=== PATIENT | male | born 1945 | race Caucasian/White ===

== ENCOUNTER → 2018-01-04 | Outpatient (CLI) | payer OTHER, MEDICARE ==
[~2018-01-04] MED LIST: MACA500 MG PO; MULTI VITAMIN1 EACH PO; OMEPRAZOLE40 MG PO; PERCOCET 10-321 EACH PO
== END ==
LOC: CAT 06:43
PROVIDERS: Family Medicine
DX: J98.4 Other disorders of lung (principal); N28.1 Cyst of kidney, acquired; K57.30 Diverticulosis of large intestine without perforation or abscess without bleeding; I70.0 Atherosclerosis of aorta

== ENCOUNTER → 2018-07-06 | Outpatient (CLI) | payer OTHER, MEDICARE | LOC: MRI 13:36 | DX: M47.816 Spondylosis without myelopathy or radiculopathy, lumbar region (principal); M50.223 Other cervical disc displacement at C6-C7 level; M50.323 Other cervical disc degeneration at C6-C7 level; M41.86 Other forms of scoliosis, lumbar region; G89.29 Other chronic pain; M48.061 Spinal stenosis, lumbar region without neurogenic claudication; M51.27 Other intervertebral disc displacement, lumbosacral region; M51.37 Other intervertebral disc degeneration, lumbosacral region ==

== ENCOUNTER → 2018-10-25 | Outpatient (CLI) | payer OTHER | LOC: CAT 10:39 | DX: Z13.6 Encounter for screening for cardiovascular disorders (principal); E78.00 Pure hypercholesterolemia, unspecified; Z82.49 Family history of ischemic heart disease and other diseases of the circulatory system ==

== ENCOUNTER → 2019-09-12 | Outpatient (CLI) | payer OTHER, MEDICARE | LOC: LABMALL 10:38 → ULTRA 10:38 | DX: N28.1 Cyst of kidney, acquired (principal); E27.1 Primary adrenocortical insufficiency ==

== ENCOUNTER → 2020-05-15 | Outpatient (CLI) | payer OTHER | LOC: CAT 09:41 | PROVIDERS: ATTEND Family Medicine | DX: Z13.6 Encounter for screening for cardiovascular disorders (principal); E78.00 Pure hypercholesterolemia, unspecified; I25.10 Atherosclerotic heart disease of native coronary artery without angina pectoris ==

== ENCOUNTER → 2020-05-15 | Outpatient (CLI) | payer OTHER, MEDICARE | LOC: CAT 09:46 | PROVIDERS: ATTEND Family Medicine | DX: J84.10 Pulmonary fibrosis, unspecified (principal); R22.2 Localized swelling, mass and lump, trunk; M47.814 Spondylosis without myelopathy or radiculopathy, thoracic region; N28.1 Cyst of kidney, acquired ==

== ENCOUNTER → 2020-09-12 | Outpatient (CLI) | payer OTHER, MEDICARE ==
[~2020-09-12] MED LIST changes: +CENTRUM ADULTS1 EACH PO; +SPIRIVA RESPIMAT4 G1 INH
== END ==
LOC: LAB 08:54
PROVIDERS: ATTEND Surgery Vascular Surgery
DX: Z01.812 Encounter for preprocedural laboratory examination (principal); Z20.828 Contact with and (suspected) exposure to other viral communicable diseases

== ENCOUNTER 2020-09-17 06:05 | Inpatient (IN) | payer OTHER, MEDICARE ==
[2020-09-12 10:58] LABS: URINE BILIRUBIN NEGATIVE (Negative); URINE BLOOD NEGATIVE (Negative); URINE CLARITY CLEAR; URINE COLOR YELLOW; URINE GLUCOSE-RANDOM* NEGATIVE (Negative); URINE KETONES NEGATIVE (Negative); URINE LEUKOCYTES-REFLEX NEGATIVE (Negative); URINE NITRITE-REFLEX NEGATIVE (Negative); URINE PROTEIN (DIPSTICK) NEGATIVE (Negative); URINE SPECIFIC GRAVITY 1.015 (1.005-1.035); URINE UROBILINOGEN 0.2 E.U./dl (0.2-1.0)
[2020-09-12 11:04] LABS: ABSOLUTE NEUTROPHILS 6.4 thou/uL (1.4-8.2); BASOPHILS 0.9 % (0.0-2.0); EOSINOPHILS 1.3 % (0.0-3.0); HEMATOCRIT 44.5 % (42.0-52.0); LYMPHOCYTES 21.1 % (24.0-44.0); MCH 30.4 pg (26.0-34.0); MCHC 33.7 g/dL (28.0-37.0); MCV 90.1 fL (80.0-100.0); MONOCYTES 8.3 % (1.0-8.0); PLATELET COUNT 291 thou/uL (150-400); POLYS 68.4 % (36.0-66.0); RBC 4.94 mil/uL (4.50-6.00); RDW 13.3 % (10.5-14.5); WBC 9.3 thou/uL (4.0-11.0)
[2020-09-12 11:13] LABS: ALBUMIN 4.1 g/dL (3.4-5.0); CALCIUM 9.9 mg/dL (8.5-10.1); CREATININE 1.1 mg/dL (0.7-1.3); POTASSIUM 4.3 mmol/L (3.5-5.1); TOTAL BILIRUBIN 0.5 mg/dL (0.2-1.0); TOTAL PROTEIN 7.5 g/dL (6.4-8.2)
[2020-09-12 11:15] LABS: APTT 26.6 Seconds (24.5-32.8); INR 1.1; PROTIME 10.8 Seconds (9.3-11.4)
--- NOTE | 2020-09-12 11:38 | EKG ---
[place] [address] [facility] [place] [address] ELECTROCARDIOGRAM REPORT Name: SHAWN BAPTISTEDEN Room #: PRE IN ..#: [id number] Admission: Attend Phys: Kashmir Queen MD Discharge: Date of : 49 Report #: [id number] [facility] Test Date: 2020-09-12 Test Time: 10:53:28 Pat Name: SHAWN BAPTISTE Department: Room: Gender: M Concrete Engineer: DEBBIE GRANT : 1945 Requested By: Kashmir Queen Order Number: [id number] MD: Antony Whiteside Measurements Intervals [place] Rate: 71 P: 70 [place]: 141 QRS: -48 QRSD: 111 T: 38 QT: 388 QTc: 422 Interpretive Statements Sinus rhythm Left anterior fascicular block Abnormal R-wave progression, early transition No previous ECG available for comparison Electronically Signed On 09-12-2020 11:38:12 VAMP STITCHER by Antony Whiteside [email or web address] <ELECTRONICALLY SIGNED> By: Antony Whiteside MD, [facility] 09/12/20 1138 1053 1053 Antony Whiteside MD, FACC /EPI
[2020-09-17] VITALS (20 sets, daily range): BP systolic 109–154; BP diastolic 60–97
[~2020-09-17] VITALS: Ht 180.3 cm; Wt 87.5 kg
--- NOTE | 2020-09-17 13:00 | NUR ---
PATIENT ADMITTED TO ICU ROOM 250 FROM PACU AT 1250 POST VAT. ATTACHED TO SPECIAL TAX AUDITOR AND SALES SUPERINTENDENT PUMP STARTED FOR PAIN MANAGEMENT. PATIENT EDUCATED ON USE OF SALES SUPERINTENDENT BUTTON.
--- NOTE | 2020-09-17 17:00 | NUR ---
DAUGHTER IN TO VISIT. CARDENE STARTED AND TITRATED TO KEEP THE SBP LESS THAN 140 [facility]
[2020-09-18] VITALS (54 sets, daily range): BP systolic 105–151; BP diastolic 60–85
[2020-09-18 05:29] LABS: HEMATOCRIT 37.6 % (42.0-52.0); HEMOGLOBIN 12.4 gm/dL (14.0-18.0); MCH 30.1 pg (26.0-34.0); MCHC 32.8 g/dL (28.0-37.0); MCV 91.8 fL (80.0-100.0); RBC 4.1 mil/uL (4.50-6.00); RDW 13.5 % (10.5-14.5); WBC 16.3 thou/uL (4.0-11.0)
[2020-09-18 05:54] LABS: CALCIUM 8.5 mg/dL (8.5-10.1); CREATININE 1.1 mg/dL (0.7-1.3); POTASSIUM 4.3 mmol/L (3.5-5.1)
--- NOTE | 2020-09-18 06:15 | NUR ---
Vital signs stable and urine output adequate throughout the night. Remains on cardene for BP support. Fentanyl PATIENT FINANCIAL SPECIALIST pump active, patient complaining of non cardiac chest pain and back pain. Provided education on pain management and patient status. Progressing towards goals.
--- NOTE | 2020-09-18 11:48 | NUR ---
Nurse talked with patient daughter Sofy, who called with an update. Nurse expressed she is not a spokesperson on the list and that if she could call Tish or Jas for an update. She expressed would do that.
--- NOTE | 2020-09-18 11:49 | NUR ---
Patient has continued pain. Per Dr. Queen, notify Hospitalist to help with pain medication control. Nurse talked with Dr. St who expressed Dr. Mckeon would be seeing this patient. Nurse talked with Dr. Mckeon and he expressed he would look into his pain management for better control. Patient expressed he doesn't want to move, perform incentive spirometry, or get out of bed until his pain is under better control. This was relayed to physicians.
--- NOTE | 2020-09-18 12:47 | NUR ---
Kerwin here to discontinue chest tube.
--- NOTE | 2020-09-18 16:33 | NUR ---
Chart reviewed and case discussed with the care team. Pt in ICU today pod#1 thoroscopy, lt VATS/chest wall mass removal. The pt is from home and lives alone. Supportive adult children. Son/DPOA Jas and dtr Tish noted as contacts. Tish was here as his designated visitor today. PT/OT evals are pending. Pt with sign pain mgnt issues today prior to having his chest tube dc'd. Pt's pcp is Dr. Keen with [facility] and his pulm is Dr. RILEY for COPD. Cardiac rehab has also been consulted. Dc planning needs are uncertain at this time. Will follow along should HH referral be indicated at dc.
[2020-09-18 21:08] LABS: URINE BILIRUBIN NEGATIVE (Negative); URINE BLOOD 1+ (Negative); URINE CLARITY CLEAR; URINE COLOR YELLOW; URINE GLUCOSE-RANDOM* NEGATIVE (Negative); URINE KETONES NEGATIVE (Negative); URINE LEUKOCYTES-REFLEX TRACE (Negative); URINE NITRITE-REFLEX NEGATIVE (Negative); URINE PROTEIN (DIPSTICK) NEGATIVE (Negative); URINE SPECIFIC GRAVITY 1.025 (1.005-1.035); URINE UROBILINOGEN 0.2 E.U./dl (0.2-1.0)
[2020-09-18 21:25] LABS: BACTERIA-REFLEX 1-9 Few /HPF (None Seen); CASTS None Seen /LPF (None Seen); CRYSTALS None Seen /LPF (None Seen); SQUAMOUS None Seen /LPF (0-3); URINE RBC 3-10 Few /HPF (0-2); URINE WBC-REFLEX 0-5 Rare /HPF (0-5)
--- NOTE | 2020-09-18 22:42 | NUR ---
ASSUMED CARE AT 1900. 1929-PT TOLERATED CHANGING POSITIONS/MOVING PILLOWS UNDER HIS BACK, REPORTED MINIMAL PAIN, STATING IT WAS AN INTERMITTENT, DULL, STABBING FEELING. URINE SPECIMEN COLLECTED AND SENT TO LAB. 2029-PT ASKED FOR A SNACK, TOLERATED JELLO AND ICE WATER. REPORTING SLIGHT INCREASE OF PAIN, GAVE DOSE PRIOR TO PULLING UP IN BED AND TO HOLD PT OVER UNTIL NEXT SCHEDULED PAIN MEDS.
[2020-09-19] VITALS (33 sets, daily range): BP systolic 98–138; BP diastolic 54–72
[2020-09-19 05:46] LABS: BASOPHILS 0.2 % (0.0-2.0); HEMATOCRIT 36.7 % (42.0-52.0); LYMPHOCYTES 7.6 % (24.0-44.0); MCH 30.2 pg (26.0-34.0); MCHC 32.7 g/dL (28.0-37.0); MCV 92.1 fL (80.0-100.0); PLATELET COUNT 237 thou/uL (150-400); POLYS 83.2 % (36.0-66.0); RBC 3.98 mil/uL (4.50-6.00); RDW 13.8 % (10.5-14.5); WBC 16.8 thou/uL (4.0-11.0)
[2020-09-19 06:15] LABS: CALCIUM 8.6 mg/dL (8.5-10.1); MAGNESIUM 2.1 mg/dL (1.8-2.4); POTASSIUM 4.5 mmol/L (3.5-5.1)
--- NOTE | 2020-09-19 14:21 | NUR ---
ASSUMED CARE AT 0700, ASSESSMENT AND VITAL SIGNS COMPLETED PER ICU PROTOCOL. PT'S SON, HEIDY, HAS BEEN PRESENT BEDSIDE WITH PT SINCE THIS MORNING. DR. PATTON ROUNDED, PLAN OF CARE DISCUSSED. RN WILL CONTINUE TO MONITOR.
--- NOTE | 2020-09-19 14:59 | NUR ---
ON-GOING ASSESSMENT: CM REVIEWED CHART AND MET WITH PT AND HIS SON AT THE BEDSIDE. PT IS STILL WORKING ON ANNA CONTROL. PT WAS ABLE TO WORK WIT PHYSICAL THERAPY AND THEY ARE RECOMMENDING HOME WITH HOME HEALTH WHICH IS PATIENTS WISH. HE STATES HE HAS NO PREFERENCE OF [facility] AND HAS NOT HAD ANY IN THE PAST. CM NOTIFIED HAZARDOUS WASTE MATERIAL TECHNICIAN TO PLEASE SEND REFERRAL TO [facility]. SON LIVES NEARBY PATIENT. CM WILL CONTINUE TO FOLLOW TO ASSIST NEEDED.
--- NOTE | 2020-09-19 15:49 | NUR ---
FAXED REFERRAL TO [facility] SPOKE WITH ART IN INTAKE SHE RECEIVED REFERRAL AND CAN ACCEPT AT DISCHARGE.
--- NOTE | 2020-09-19 17:52 | NUR ---
PT TRANSFERED FROM THIS ICU THIS EVENING AT 1725. PT ORIENTED TO ROOM AND BEDSPACE - UP IN THE CHAIR FOR DINNER. AMBULATED TO THE BATHROOM TO VOID. BACK IN BED AT THE PRESENT TIME PT STATES HE IS TIERD. ASSESSMENT CHARTED. APPEARS TO BE RESTING COMFORTABLY AT THE PRESENT TIME.
[2020-09-20 04:15] VITALS: BP 119/82
--- NOTE | 2020-09-20 05:01 | NUR ---
ASSUMED CARE OF THE PATIENT AT 1900; AOX4/STB TO TOILET/URINAL AT [facility]; C/O OF PAIN MANAGED WITH SCHED/PRN MEDICATIONS; SR ON THE MONITOR; INCISIONAL WOUND WITH DRESSING IN PLACE TO LEFT LATERAL CHEST C/D/I; 4LPM NC; SLEPT MOST OF THE NOC; WILL CONTINUE TO MONITOR
[2020-09-20 07:45] VITALS: BP 145/68
[2020-09-20 11:25] VITALS: BP 148/73
[2020-09-20 16:30] VITALS: BP 148/77
[2020-09-20 17:34] VITALS: BP 125/62
--- NOTE | 2020-09-20 17:35 | NUR ---
Pt progressing toward dc goals, weaning off o2. Home with HH per [facility]. Dc summary and instructions will need to be faxed to the at [phone] and their oncall nurse notified at [phone].
[2020-09-20 19:30] VITALS: BP 133/63
--- NOTE | 2020-09-20 19:40 | NUR ---
ASSESSMENT CHARTED - MEDS PER NOV - NO CO'S OF NAUSEA. GIVEN SCHEDULED PAIN MEDICATION AND ATIVAN THIS AFTERNOON WITH MOD RELIEF. NINI DIET AND FLUIDS. PT AMUBLATED WITH PHYS THERAPY AND WAS SEEN BY OCC THERAPY TODAY. PT UP IN THE CHAIR FOR ALOTOF THE DAY. PT WEANED FROM 4 L NC TTO ROOM AIR NINI RA WELL WITH NO CO'S OF SHORTNESS OF BREATH. DRESSING TO CHEST TUBE SITE REMOVED THIS SHIFT. SON UP TO VISIT. PT HOPES TO GO HOME IN TOMORROW.
--- NOTE | 2020-09-20 22:40 | NUR ---
SPOT CHECK SHOWED PATIENT OXYGEN SATURATION IN MID 80'S. NURSE INITIATED OXYGEN 4L NC WITH PATIENT QUICKLY RECOVERING INTO LOW 90'S. PROVIDER ALERTED WITH NURSING STAFF TO SPOT CHECK THROUGHOUT NIGHT. CONTINUE PLAN OF CARE.
[2020-09-21 04:30] VITALS: BP 152/79
--- NOTE | 2020-09-21 04:33 | NUR ---
ASSUMED PATIENT CARE AT 1845. VITAL SIGNS STABLE WITH PATIENT HAVING COMPLAINTS OF GENERALIZED PAIN WHICH WAS TREATED APPROPRIATELY THROUGH MEDICATIONS AND NON PHARMACOLOGICAL INTERVENTION. UPON SPOT OXYGENATION CHECKS OVERNIGHT PATIENT EXHIBITED A SAT IN THE MID 80'S. PATIENT PROMPTLY PLACED ON OXYGEN WITH FOLLOW UP ASSESSMENTS AND SATURATION CHECKS WNL. PATIENT IS ANXIOUS FOR POTENTIAL DISCHARGE. CONTINUE PLAN OF CARE.
[2020-09-21 08:05] VITALS: BP 148/77
[2020-09-21 12:15] VITALS: BP 163/88
--- NOTE | 2020-09-21 12:24 | NUR ---
RECEIVED PT'S CARE AROUND 0725; PT. ON BED; ALERT; SR ON THE MONITOR; DURING AM ASSESSMENT PT. AOX4; NO C/O PAIN; C/O CONSTIPATION; PRN MEDICATION GIVEN; EDUCATED ABOUT THE IMPORTANCE OF FLUID INTAKE AND AMBULATION IN ORDER TO PROMOTE BOWEL MOVEMENT; 2L ON PLACED; 02 SAT 100%; TITRATE 02 TO RA; 02 SAT 100% AT REST; AMBULATION WITH PT; PER PT REPORT PT'S 02 SAT 88% AFTER AMBULATION; PHYSICIAN NOTIFIED; NO NEW ORDERS; PHYSICIAN NOTIFIED ABOUT DISTENTION; ORDERS RECEIVED; ASSESSMENT CHARGED; FOLLOWING POC; D/C ORDERS ON PLACED; WILL WORK ON D/C ORDERS;
[2020-09-21 12:27] VITALS: BP 125/62
--- NOTE | 2020-09-22 09:20 | O ---
[facility] [place] [address] OPERATIVE REPORT Name: SHAWN BAPTISTE Room #: 208-P [facility] IN M.R.#: [id number] Admission: 09/17/20 Attend Phys: Kashmir Queen MD Discharge: 09/21/20 Date of : 49 Report #: [id number] THIS REPORT FOR: cc: Luis Fernando Keen James A. DO Forman, John M. 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 POSTOPERATIVE DIAGNOSIS: Left subpleural chest wall tumor. OPERATION: Bronchoscopy, left video-assisted thoracoscopy, left thoracotomy with resection of left subpleural chest wall tumor. SURGEON: Kashmir Queen MD [facility] [employer] DISPATCHER: MICHELLE Yao. ANESTHESIA: General. INDICATIONS: The patient is a 74-year-old with a left chest wall tumor. This has been seen to grow overtime by serial chest x-ray, albeit somewhat slowly. This mass does have increased activity on PET scan. There is no other significant activity, although there is some area of rounded atelectasis in the right lower lobe. FINDINGS AND TECHNIQUE: After general anesthesia was established, flexible diagnostic bronchoscopy was performed. No endobronchial lesions were noted. A double lumen endotracheal tube was placed and the patient was positioned with left side up. Exposure was obtained through typical video-assisted thoracoscopy ports. The subpleural tumor in the left chest wall was identified. The pleura were resected to expose this tumor. It should be mentioned that an extensive discussion was had with the patient prior to surgery discussing the risks and benefits, options and alternatives of both the pathology and proposed treatment. The patient was adamant that he did not want chest wall resection involving multiple ribs and reconstruction and was willing to accept only limited resection. The chest wall tumor was identified and resection was begun. The tumor itself was quite friable and in order to excise the tumor and the intercostal bundle, I felt it was necessary to expand our approach from a video-assisted approach to a thoracotomy. As such, a posterolateral thoracotomy was done, but this was done [address] [address] OPERATIVE REPORT Name: SHAWN BAPTISTE Room #: 208-P [facility] IN M.R.#: [id number] Admission: 09/17/20 Attend Phys: Kashmir Queen MD Discharge: 09/21/20 Date of : 49 Report #: [id number] in a muscle sparing fashion so that a latissimus flap was developed and the latissimus and serratus themselves were spared. The latissimus was elevated and the serratus was retracted and we identified this tumor both from a thoracoscopic view and directly. As the periosteal resection was done of the rib above and below the tumor, the intercostal bundle of the rib above was freed from the rib and the intercostal muscle from the rib below the tumor was divided. As such, the only remaining attachments were the intercostal bundle and muscle medially and laterally to the tumor. These were resected both directly and with the vision through the thoracoscope and then the tumor itself was resected and submitted for permanent pathology. Inspection of the cut ends of the intercostal bundle showed no evidence of bleeding as hemostasis had been ascertained both with clips and cautery and then there appeared to be no residual tumor present, but this was a "gross only" __. Hemostasis was ascertained, a chest tube was brought through the lowest port and then the muscles were allowed to resume their typical position. Interrupted Vicryl was used to tack down the latissimus to the serratus and their natural positions and then the fascia and skin were closed in layers. The patient was taken to the recovery area in good condition having tolerated the procedure well. All counts reported as correct. <ELECTRONICALLY SIGNED> By: Kashmir Queen MD 09/22/20 0920 0746 0803 Kashmir Queen MD /nt
--- NOTE | 2020-09-23 11:17 | NUR ---
RECEIVED CALL FROM ART FROM [facility] THAT PT REFUSED HH.
--- NOTE | 2020-09-23 19:07 | PATH ---
[facility] [address] [place] [address] PATHOLOGY RPT PROCEDURE Name: EMILESHAWN Room #: 208-P DIS IN M.R.#: [id number] Admission: 09/17/20 Date of : 49 Discharge: 09/21/20 Report #: [id number] Path Case #: [id number] [facility] Accession Number: [id number] . 01 Material submitted: . chest - LEFT SUBPLEURAL CHEST WALL TUMOR. Modifiers: left . 01 Clinical history: . BRONSCHOSCOPY PLEURAL THICKENING . 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 - Tumor present at inked surgical margin of resection. (IUV:dwaine; 09/20/2020) MBR 09/20/2020 1317 Local . 02 Comment: Examination shows a spindle cell lesion with hypocellular and hypercellular areas. Necrosis is not identified. The lesion shows a low mitotic activity of approximately 3-5 mitoses in approximately 20 high-power sanford examined. Minimal nuclear atypia is present scattered within the lesion. Multiple properly controlled immunohistochemical stains are performed on block A2 and are interpreted as follows: . S-100 - strong reactivity present within the entire lesion. CD56 - patchy membranous reactivity present. Vimentin - strong reactivity present. Beta-catenin - no nuclear reactivity present; nonspecific cytoplasmic reactivity present. MONICA - nonreactive. Desmin - nonreactive within the lesion. SMA - nonreactive within the lesion. Calponin - nonreactive within the lesion. MS actin - nonreactive within the lesion. Synaptophysin - nonreactive. AE1/AE3 - nonreactive. P63 - nonreactive. . Based on the nonreactive immunohistochemical stains, a squamous cell carcinoma, a spindle cell variant or a metaplastic carcinoma, carcinoid tumor, leiomyoma as well as a fibroma are unlikely. The reactive immunohistochemical stains support the lesion to be a cellular schwannoma. In order to further characterize this lesion additional immunohistochemical stains are ordered on block A2 and are interpreted as follows. . [address] [address] PATHOLOGY RPT PROCEDURE Name: SHAWN WEST Room #: 208-P DIS IN M.R.#: [id number] Admission: 09/17/20 Date of : 49 Discharge: 09/21/20 Report #: [id number] Path Case #: [id number] P16 - focally reactive. Ki67 - approximately 5% proliferation rate. . These findings support a cellular schwannoma and argue against a malignant peripheral nerve sheath tumor. . The tumor is identified at the surgical margin in multiple foci. In addition, the sections of the additional fragments received within the container show the lesion as well. Please correlate with intraoperative findings for a complete resection of this lesion. . Director Of Application Development slides (A1, A2, A7, A8, and A9) along with few immunohistochemical stains are co-reviewed by Dr. Jc Ellis who concurs with my diagnosis. . Findings of this case are discussed with Dr. Kashmir Queen in the afternoon of 09/20/2020. . (IUV:control panel operator crude unit; 09/20/2020) . 02 Electronically signed: . Zulema Rowland MD, Pathologist NPI- [id number] . 01 Gross description: . The specimen is received in formalin, labeled "Shawn West, left subpleural chest wall tumor" and consists of a hemorrhagic ragged yellow pink to brown segment of tissue weighing 20 g and measuring 6.6 x 3.8 x 2.1 cm. There is focal glistening pink tissue overlying the segment. It is inked black and sectioned to show a fluctuant 3.8 x 3.0 cm cystic mass filled with hemorrhagic material. Also received in the container are multiple friable fragments of pink-mancini tissue and blood clot measuring 5.8 x 5.3 x 1.2 cm in aggregate. Director Of Application Development sections are submitted as follows: . A1-A10: Entire mass A11: Uninvolved tissue A12: Additionally received friable tissue (SDY; 09/17/2020) SYU/SYU 09/17/2020 1606 Local . 02 Pathologist provided ICD-10: D36.14 . 02 CPT . 313106, [id number], [id number], [id number] Specimen Comment: A courtesy copy of this report has been sent to [phone] Specimen Comment: Report sent to [facility] [address] [place] [address] PATHOLOGY RPT PROCEDURE Name: SHAWN WEST Room #: 208-P [facility] IN M.R.#: [id number] Admission: 09/17/20 Date of : 49 Discharge: 09/21/20 Report #: [id number] Path Case #: [id number] [facility]: [facility] [address], [place], [place] [id number] MD Brandyn Becerra MD Phone: [phone] Performed at: [address] [id number] MD Zulema Rowland MD Phone: [phone]
== END 2020-09-21 13:13 | disposition home or self-care (01) | DRG 163 ==
LOC: ICU 06:05 → TBA 06:05 → PRE 08:42 → ICU 12:51 → PRE 15:26 → 2N 09-19 17:10
PROVIDERS: Internal Medicine; Physician Assistant; ADMIT Surgery Vascular Surgery; ATTEND Surgery Vascular Surgery
PROC: 0WB80ZZ Excision of Chest Wall, Open Approach (ICD-10-PCS; principal; 2020-09-18)
PROC: 0BBP0ZZ Excision of Left Pleura, Open Approach (ICD-10-PCS; principal; 2020-09-18)
DX: D49.1 Neoplasm of unspecified behavior of respiratory system (principal); J96.00 Acute respiratory failure, unspecified whether with hypoxia or hypercapnia; J93.9 Pneumothorax, unspecified; R22.2 Localized swelling, mass and lump, trunk; G89.4 Chronic pain syndrome; M54.2 Cervicalgia; M54.9 Dorsalgia, unspecified; Z79.891 Long term (current) use of opiate analgesic; Z79.899 Other long term (current) drug therapy
CPT/HCPCS: 10078; 10081; 50010; 50101; 50249; 50386; 50417; 50455; 50497; 51301; 51489; 51687; 52265; 52266; 54118; 56455; 56462; 56524; 56525; 56526; 56528; 62110; 62900; 65105; 65130; 70005

== ENCOUNTER → 2020-12-25 | Outpatient (CLI) | payer OTHER, MEDICARE | LOC: RAD 11:50 | PROVIDERS: ATTEND Internal Medicine Pulmonary Disease | DX: R91.8 Other nonspecific abnormal finding of lung field (principal); R06.02 Shortness of breath ==

== ENCOUNTER → 2021-01-22 | Outpatient (CLI) | payer OTHER, MEDICARE | LOC: CAT 13:43 | PROVIDERS: ATTEND Internal Medicine Pulmonary Disease | DX: R91.8 Other nonspecific abnormal finding of lung field (principal); J92.9 Pleural plaque without asbestos ==

== ENCOUNTER → 2021-07-25 | Outpatient (CLI) | payer OTHER, MEDICARE | LOC: CAT 12:45 | PROVIDERS: ATTEND Internal Medicine Pulmonary Disease | DX: R91.8 Other nonspecific abnormal finding of lung field (principal); Z77.090 Contact with and (suspected) exposure to asbestos ==

== ENCOUNTER → 2021-10-28 | Outpatient (CLI) | payer OTHER, MEDICARE ==
[~2021-10-28] VITALS: Ht 185.4 cm; Wt 93.0 kg
[~2021-10-28] MED LIST changes: +URINOZINC PROS100 MG PO
--- NOTE | 2021-10-29 14:07 | PATH ---
[facility] [address] [address] PATHOLOGY RPT PROCEDURE Name: EMILESHAWN DURÁNDEN Room #: REG Ayaan Campos.#: [id number] Admission: 10/28/21 Date of : 49 Discharge: Report #: [id number] Path Case #: [id number] [facility] Accession Number: [id number] . 01 Material submitted: . PART A: stomach - ANTRUM FOR H. PYLORI PART B: esophagus - DISTAL ESOPHAGUS R/O PLUMMER'S. Modifiers: distal . 01 Clinical history: . ESOPHAGOGASTRODUODENOSCOPY GERD DYSPHAGIA, ESOPHAGEAL STRICTURE, ESOPHAGITIS, HIATAL HERNIA . 02 Diagnosis: A. Gastric antrum, biopsy: - Gastric antral mucosa with mild chronic inactive gastritis. - A H. pylori immunohistochemical stain is negative for H. pylori-like organisms. . B. Distal esophagus, biopsy: - Fragments of squamous mucosa with features of mild reflux esophagitis. - No glandular mucosa identified. - Negative for malignancy. . (ANK:dwaine; 10/29/2021) MBR 10/29/2021 1040 Local . 02 Electronically signed: . Jennifer Phillip MD, Pathologist NPI- [id number] . 01 Gross description: . A. The specimen is received in formalin, labeled "Shawn West, biopsy antrum for H. pylori". Received is a single segment of light mancini tissue measuring 0.4 cm in maximum dimensions. The specimen is entirely submitted in cassette A1. . B. The specimen is received in formalin, labeled "Shawn West, biopsy distal esophagus, R/O Plummer's". Received are 2 segments of pale mancini tissue measuring 0.2 and 0.3 cm in maximum dimensions. The specimen is entirely submitted in cassette B1. ([facility]; 10/28/2021) NRI/NRI 10/28/2021 1702 Local . 02 Pathologist provided ICD-10: K29.50, K21.00, R13.10, K44.9 . [address] [address] PATHOLOGY RPT PROCEDURE Name: SHAWN WEST Room #: REG CL Veda#: [id number] Admission: 10/28/21 Date of : 49 Discharge: Report #: [id number] Path Case #: [id number] [facility] . [id number], [id number], [id number] Specimen Comment: A courtesy copy of this report has been sent to [phone] Specimen Comment: [phone] Specimen Comment: Report sent to / DR LUNA Performed at: [address], [place] [id number] MD Brandyn Becerra MD Phone: [phone] Performed at: [address] [id number] MD Jennifer Phillip MD Phone: [phone]
== END | disposition home or self-care (01) ==
LOC: GI 08:00
PROVIDERS: ATTEND Internal Medicine Gastroenterology
DX: R13.19 Other dysphagia (principal); K22.2 Esophageal obstruction; K29.50 Unspecified chronic gastritis without bleeding; K21.00 Gastro-esophageal reflux disease with esophagitis, without bleeding; K44.9 Diaphragmatic hernia without obstruction or gangrene; R12 Heartburn; J43.9 Emphysema, unspecified; M19.90 Unspecified osteoarthritis, unspecified site; K21.9 Gastro-esophageal reflux disease without esophagitis; Z98.890 Other specified postprocedural states; Z79.899 Other long term (current) drug therapy; Z87.891 Personal history of nicotine dependence; Z87.19 Personal history of other diseases of the digestive system; Z20.822 Contact with and (suspected) exposure to COVID-19
CPT/HCPCS: 62110; 62900